=== PATIENT | female | born 1965 | race Caucasian/White ===

== ENCOUNTER 2017-08-31 20:47 | Emergency (ER) | payer MEDICAID ==
[2017-08-31] MEDS ORDERED: Ketorolac 10 MG Tab PO ONE (21:40)
[2017-08-31] MEDS ORDERED: hydrOXYzine HCl 100 MG/2 ML SDV IM ONE (21:40)
--- NOTE | 2017-08-31 21:50 | EDM.PDOC ---
ED HPI GENERAL MEDICAL PROBLEM - General Chief Complaint: General Stated Complaint: PAIN Time Seen by Provider: 08/31/17 21:27 Source of Information: Reports: Patient, Family (Friend) History Limitations: Reports: No Limitations - History of Present Illness INITIAL COMMENTS - FREE TEXT/NARRATIVE: Acute and Chronic pain; this is a 52 year old female presents to ER via Ambulance with concerns of worsen pain. She reports has has pain for the past 10 years or more. Today felt her pain was too severe, rates at 10 out of 10, has tried Motrin without relief. denies any nausea, vomiting or diarrhea denies any recent falls or injury denies any street or prescription drug use, then reports use of Pot Butter reports drinking daily for the past year, Vodka, reports a little amount decline to submit urine sample, "I just went to the bathroom, when I got here" Onset: Gradual Duration: Constant (reports chronic pain for 10 years), Getting Worse (today had severe panic and pain attack. 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: Musculoskeletal History: Reports: Other (See Below) Other Musculoskeletal History: 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 Psychiatric History: Reports: Anxiety, Panic Attack Oncologic (Cancer) History: Reports: Cervix, Other (See Below) Other Oncologic History: Cervix removed - Past Surgical History HEENT Surgical History: Reports: Adenoidectomy, LASIK, Tonsillectomy GI Surgical History: Reports: Other (See Below) Other GI Surgeries/Procedures: Exploratory lap due to scar tissue, severe abdominal pain Female Surgical History: Reports: Section, Hysterectomy, Other (See Below) Other Female Surgeries/Procedures: Cervical cancer Social & Family History - Tobacco Use Smoking Status *Q: Current Every Day Smoker Years of Tobacco use: 32 Packs/Tins Daily: 0.5 - Caffeine Use Caffeine Use: Reports: Coffee, Energy Drinks, Soda, Tea - Alcohol Use Alcohol Use History: Yes Days Per Week of Alcohol Use: 7 Number of Drinks Per Day: 2 (not sure) Total Drinks Per Week: 14 Date of Last Drink: 08/30/17 Alcohol Use in Last Twelve Months: Yes Alcohol Use Frequency: Daily (reports drinking Vodka daily for atleast one year) - Recreational Drug Use Recreational Drug Use: No Drug Use in Last 12 Months: Yes - Living Situation & Occupation Living situation: Reports: Single (lives in Cabin at [facility] ED ROS GENERAL - Review of Systems Review Of Systems: See Below Constitutional: Reports: Other (acute and chronic pain) HEENT: Reports: No Symptoms Respiratory: Reports: No Symptoms Cardiovascular: Reports: No Symptoms Endocrine: Reports: No Symptoms GI/Abdominal: Reports: No Symptoms : Reports: No Symptoms Musculoskeletal: Reports: Back Pain, Muscle Pain, Other (generalized pain for the past 10 years. today having a flare up.) Skin: Reports: No Symptoms Neurological: Reports: No Symptoms Psychiatric: Reports: Anxiety, Other (daily alcohol use, Vodka) Hematologic/Lymphatic: Reports: No Symptoms Immunologic: Reports: No Symptoms ED EXAM, GENERAL - Physical Exam Exam: See Below Exam Limited By: No Limitations General Appearance: Alert, Anxious, Thin Eye Exam: Left Eye: EOMI Ears: Normal External Exam, Normal Canal, Hearing Grossly Normal, Normal TMs Ear Exam: Bilateral Ear: Auricle Normal, Canal Normal, TM normal Nose: Normal Inspection Throat/Mouth: Normal Inspection Head: Atraumatic, Normocephalic Neck: Normal Inspection, Supple, Non-Tender, Full Range of Motion Respiratory/Chest: No Respiratory Distress, Lungs Clear, Normal Breath Sounds, No Accessory Muscle Use, Chest Non-Tender Cardiovascular: Normal Peripheral Pulses, Regular Rate, Rhythm, No Edema, No Murmur, No Rub GI/Abdominal: Normal Bowel Sounds, Soft, Non-Tender, No Distention, No Abnormal Bruit, No Mass (Female) Exam: Deferred Rectal (Female) Exam: Deferred Back Exam: Normal Inspection, Full Range of Motion, NT Extremities: Normal Inspection, Normal Range of Motion, Non-Tender, Normal Capillary Refill, No Pedal Edema Neurological: Alert, Oriented, CN II-XII Intact, Normal Cognition, Normal Gait, Normal Reflexes, No Motor/Sensory Deficits Psychiatric: Anxious Skin Exam: Warm, Dry, Intact, Normal Color, No Rash Lymphatic: No Adenopathy Course - Vital Signs Last Recorded V/S: Last Vital Signs Temp 34.8 C L 08/31/17 21:15 Pulse 104 H 08/31/17 21:15 Resp 16 08/31/17 21:15 BP 167/114 H 08/31/17 21:15 Pulse Ox 97 08/31/17 21:15 - Orders/Labs/Meds Meds: Medications Discontinued Medications Generic Name Dose Route Start Last Admin Trade Name Estefania PRN Reason Stop Dose Admin Hydroxyzine HCl 50 mg 08/31/17 21:40 Vistaril IM 08/31/17 21:41 ONETIME ONE Ketorolac Tromethamine 10 mg 08/31/17 21:40 Toradol PO 08/31/17 21:41 ONETIME ONE - Re-Assessments/Exams Free Text/Narrative Re-Assessment/Exam: 08/31/17 22:00 will give Hydroxyzine 50 mg im and Toradol 10 mg po will give a script for Toradol 10mg po every 6 hr prn pain #10 advise to follow up with Primary Care Provider for recheck next week. discussed alcohol use. Ms. Gomez and friend agree with plan of care Departure - Departure Time of Disposition: 22:09 Disposition: Home, Self-Care 01 Condition: Good Clinical Impression: Pain aggravated by anxiety - Discharge Information Referrals: PCP,None [Primary Care Provider] - Care Plan Goals: Pain aggravated by anxiety -script for Toradol 10mg po every 6 to 8 hours as needed for pain. -do not use Toradol with Motrin. -follow up with Primary Care Provider for recheck on Monday. Return to Clinic or ER if not improved or symptoms worsen. - Problem List & Annotations (1) Pain aggravated by anxiety SNOMED Code(s): 924002520 Code(s): F45.42 - PAIN DISORDER WITH RELATED PSYCHOLOGICAL FACTORS; F41.1 - GENERALIZED ANXIETY DISORDER Status: Acute Priority: Medium Current Visit : Yes - Problem List Review Problem List Initiated/Reviewed/Updated: Yes - Assessment/Plan Plan: Pain aggravated by anxiety -script for Toradol 10mg po every 6 to 8 hours as needed for pain. -do not use Toradol with Motrin. -follow up with Primary Care Provider for recheck on Monday. Return to Clinic or ER if not improved or symptoms worsen.
== END 2017-08-31 22:29 | disposition home or self-care (01) ==
LOC: JP.ED 20:47
DX: R52 Pain, unspecified (principal); F41.9 Anxiety disorder, unspecified; F17.210 Nicotine dependence, cigarettes, uncomplicated; Z88.5 Allergy status to narcotic agent
CPT/HCPCS: 96372; 99283; A9270; J3410

== ENCOUNTER 2021-01-24 12:48 | Emergency (ER) | payer MEDICAID ==
--- NOTE | 2021-01-24 13:43 | EDM.PDOC ---
ED HPI GENERAL MEDICAL PROBLEM - General Chief Complaint: Bite:Animal, Insect Stated Complaint: BUG BITE Time Seen by Provider: 01/24/21 13:02 Source of Information: Reports: Patient, Family, RN Notes Reviewed History Limitations: Reports: No Limitations - History of Present Illness INITIAL COMMENTS - FREE TEXT/NARRATIVE: 55-year-old female presents emergency department day with rash right above her right eye, she states developed over the last couple of days she has a very tingly sensation will be painful at times her biggest problem is it is very itchy, no fevers - Related Data Allergies Allergy/AdvReac Type Severity Reaction Status Date / Time morphine Allergy Itching Verified 01/24/21 13:23 Home Meds: Home Meds Potassium Chloride 01/24/21 [History] Rosuvastatin [Crestor] 01/24/21 [History] hydroCHLOROthiazide [Hydrochlorothiazide] 01/24/21 [History] valACYclovir [Valtrex] 1,000 mg PO TID #21 tablet 01/24/21 [Rx] Past Medical History Cardiovascular History: Reports: Hypertension 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: Musculoskeletal History: Reports: Other (See Below) Other Musculoskeletal History: 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 Psychiatric History: Reports: Anxiety, Panic Attack Oncologic (Cancer) History: Reports: Cervix, Other (See Below) Other Oncologic History: Cervix removed - Past Surgical History HEENT Surgical History: Reports: Adenoidectomy, LASIK, Tonsillectomy GI Surgical History: Reports: Other (See Below) Other GI Surgeries/Procedures: Exploratory lap due to scar tissue, severe abdominal pain Female Surgical History: Reports: Section, Hysterectomy, Other (See Below) Other Female Surgeries/Procedures: Cervical cancer Social & Family History - Tobacco Use Tobacco Use Status *Q: Current Every Day Tobacco User Years of Tobacco use: 30 Packs/Tins Daily: 0.5 - Caffeine Use Caffeine Use: Reports: Coffee, Energy Drinks, Soda, Tea - Living Situation & Occupation Living situation: Reports: Single (lives in Cabin at [facility] ED ROS GENERAL - Review of Systems Review Of Systems: See Below Constitutional: Denies: Fever HEENT: Denies: Eye Discharge, Eye Pain Skin: Reports: Rash ED EXAM, ANIMAL BITE - Physical Exam Exam: See Below Exam Limited By: No Limitations General Appearance: Alert, WD/WN, No Apparent Distress Eye Exam: Bilateral Eye: EOMI, Normal Inspection Skin Exam: Rash, Other (Zoster type dermatome on C2) Course - Vital Signs Last Recorded V/S: Last Vital Signs Temp 97.6 F 01/24/21 13:31 Pulse 107 H 01/24/21 13:31 Resp 16 01/24/21 13:31 BP 120/88 01/24/21 13:31 Pulse Ox 98 01/24/21 13:31 Departure - Departure Time of Disposition: 13:42 Disposition: Home, Self-Care 01 Condition: Fair Clinical Impression: Shingles Qualifiers: Herpes zoster complications: without complications Qualified Code(s): B02.9 - Zoster without complications - Discharge Information Prescriptions: valACYclovir [Valtrex] 1,000 mg PO TID #21 tablet Instructions: Shingles, [id number] Referrals: SHORTY HUNT MD [Other] Additional Instructions: Take full course of the antiviral medication, please followup with your primary care provider in 5-7 days if not better, please call return to the emergency department with worsening of symptoms. Sepsis Event Note (ED) - Evaluation Sepsis Screening Result: No Definite Risk - Focused Exam Vital Signs: Vital Signs Temp Pulse Resp BP Pulse Ox 01/24/21 13:31 97.6 F 107 H 16 120/88 98 01/24/21 13:22 97.6 F 107 H 16 120/88 98 - Assessment/Plan Plan: Assessment Acuity = acute Site and laterality = shingles Etiology = varicella-zoster virus Manifestations = none Location of injury = Home Lab values = none Plan Like to treat empirically Valtrex 1 g p.o. 3 times daily x7 days follow-up primary care 5 to 7 days no improvement This note was dictated using [employer] recognition software please call with any questions on syntax or grammar.
== END 2021-01-24 13:54 | disposition home or self-care (01) ==
LOC: JP.ED 12:48
DX: B02.9 Zoster without complications (principal); I10 Essential (primary) hypertension; Z72.0 Tobacco use; Z79.899 Other long term (current) drug therapy; Z88.5 Allergy status to narcotic agent
CPT/HCPCS: 99282